=== PATIENT | female | born 1995 | race Two or more races ===

== ENCOUNTER 2024-07-16 12:18 | Inpatient (IN) | payer MEDICAID ==
[~2024-07-16] VITALS: Ht 154.9 cm; Wt 102.2 kg
--- NOTE | 2024-07-16 12:39 | ED.PDOC ---
GI ASSESSMENT HPI Comments 29y F who presents to the ED for chief complaint of abdominal pain. Pt states she has been having epigastric abdominal pain since last night PM. Pt states her pain is sharp, rating the pain 10/10, constant, non-radiating, with no associated exacerbating or relieving factors. Pt has associated nausea, fever, chills with 1 diarrhea episode. Pt otherwise denies any changes to diet or recent sick contacts. Pt denies any other symptoms at this time. Pt noted in distress and states pain has exacerbated in the past 2 hours. Pt otherwise denies any other symptoms at this time. Time Seen by MD: 12:36 Reviewed Notes: Nurses Notes, Medications, Allergies Allergies: Coded Allergies: NO KNOWN ALLERGIES (Unverified , 07/16/24) Information Source: Patient, Relative (Mother) Mode of Arrival: Ambulatory Brought in by: mother Timing: Hours Duration: Since onset Prehospital treatment: None Quality: Sharp Vomitus: None Stool: Gross Severity: Moderate Recent: None Recent Hx of: None Pain Location: Epigastric Modifying Factors: Nothing Associated sign and symptoms: Nausea, Diarrhea, Abdominal Pain, Fever Past Medical History PAST MEDICAL HISTORY: Denies Surgical History: Cholecystectomy [employer] History: Denies all [employer] Hx Family History Family History: Reviewed,noncontributory to illness Social History Smoker: Non-Smoker Alcohol: Denies ETOH Use Drugs: Denies Drug Use Lives In: Home Constitutional: reports: chills, fever; denies: diaphoresis, fatigue, malaise, sweats, weakness, others EENTM: denies: blurred vision, double vision, ear bleeding, ear discharge, ear drainage, ear pain, ear ringing, eye pain, eye redness, hearing loss, mouth pain, mouth swelling, nasal discharge, nose bleeding, nose congestion, nose pain, photophobia, tearing, throat pain, throat swelling, voice changes, others Respiratory: denies: cough, hemoptysis, orthopnea, SOB at rest, shortness of breath, SOB with excertion, stridor, wheezing, others Cardiovascular: denies: chest pain, dizzy spells, diaphoresis, Dyspnea on exertion, edema, irregular heart beat, left arm pain, lightheadedness, palpitations, PND, syncope, others Gastrointestinal: reports: abdominal pain, diarrhea, nausea; denies: abdomen distended, blood streaked bowels, constipated, dysphagia, difficulty swallowing, hematemesis, melena, poor appetite, poor fluid intake, rectal bleeding, rectal pain, vomiting, others Genitourinary: denies: abnormal vagina bleeding, burning, dyspareunia, dysuria, flank pain, frequency, hematuria, incontinence, pain, , vagina discharge, urgency, others Neurological: denies: dizziness, fainting, headache, left sided numbness, left sided weakness, numbness, paresthesia, pre-existing deficit, right sided numbness, right sided weakness, seizure, speech problems, tingling, tremors, weakness, others Musculoskeletal: denies: back pain, gout, joint pain, joint swelling, muscle pain, muscle stiffness, neck pain, others Integumetry: denies: bruises, change in color, change in hair/nails, dryness, laceration, lesions, lumps, rash, wounds, others Allergic/Immunocompromised: denies: Difficulty Healing, Frequent Infections, Hives, Itching, others Hematologic/Lymphatic: denies: anemia, blood clots, easy bleeding, easy bruising, swollen glands, others Endocrine: denies: excessive hunger, excessive sweating, excessive thirst, excessive urination, flushing, intolerance to cold, intolerance to heat, unexplained weight gain, unexplained weight loss, others Psychiatric: denies: anxiety, bipolar disorder, depression, hopeless, panic disorder, schizophrenia, sleepless, suicidal, others All Other Systems: Reviewed and Negative Physical Exam General Appearance: Moderate Distress HEENT: Normal ENT Inspection, Pharynx Normal, TMs Normal Neck: Full Range of Motion, Non-Tender, Normal, Normal Inspection Respiratory: Chest Non-Tender, Lungs Clear, No Accessory Muscle Use, No Respiratory Distress, Normal Breath Sounds Cardiovascular: No Edema, No JVD, No Murmur, No Gallop, Normal Peripheral Pulses, Regular Rate/Rhythm Breast Exam: Deferred Gastrointestinal: Epigastric, No Organomegaly, No Pulsatile Mass, Normal Bowel Sounds, Soft, Tenderness Genitalia: Deferred Pelvic: Deferred Rectal: Deferred Extremities: No calf tenderness, Normal capillary refill, Normal inspection, Normal range of motion, Non-tender, No pedal edema Musculoskeletal : Apperance: Normal Neurologic: Alert, fly finisher II-XII nml as Tested, No Motor Deficits, Normal Affect, Normal Mood, No Sensory Deficits Cerebellar Function: Normal Reflexes: Normal Skin: Dry, Normal Color, Warm Lymphatic: No Adenopathy Was a procedure done? Was a procedure done?: No GI differential Dx Differential Diagnosis: Cholecystitis, Gastritis/PUD, Gastroenteritis, Pancreatitis, UTI, Electrolyte Imbalance, Food Poisoning, Bacterial, Viral, Stress Ulcer Other Differential Diagnosis colitis, X-Ray, Labs, Meds, VS Vital Signs Date Time Temp Pulse Resp B/P (MAP) Pulse Ox O2 Delivery O2 Flow Rate FiO2 07/16/24 12:40 98.0 89 18 130/93 (105) 96 98.0 Lab Test 07/16/24 12:59 Range/Units White Blood Count 6.6 4.4-10.8 10^3/uL Red Blood Count 5.38 H 4.0-5.20 10^6/uL Hemoglobin 15.5 12.2-16.2 g/dL Hematocrit 45.0 36.0-46.0 % Mean Corpuscular Volume 83.6 80.0-100.0 fL Mean Corpuscular Hemoglobin 28.9 28.0-32.0 pg Mean Corpuscular Hemoglobin Concent 34.5 32.0-36.0 g/dL Red Cell Distribution Width 13.0 11.8-14.3 % Platelet Count 257 140-450 10^3/uL Mean Platelet Volume 8.1 6.9-10.8 fL Neutrophils (%) (Auto) 75.1 37.0-80.0 % Lymphocytes (%) (Auto) 11.3 10.0-50.0 % Monocytes (%) (Auto) 12.0 0.0-12.0 % Eosinophils (%) (Auto) 1.2 0.0-7.0 % Basophils (%) (Auto) 0.4 0.0-2.0 % Neutrophils # (Auto) 4.9 1.6-8.6 10 ^3/uL Lymphocytes # (Auto) 0.7 0.4-5.4 10 ^3/uL Monocytes # (Auto) 0.8 0-1.3 10 ^3/uL Eosinophils # (Auto) 0.1 0-0.8 10 ^3/uL Basophils # (Auto) 0 0-0.2 10 ^3/uL Nucleated Red Blood Cells 0.0 % Sodium Level 140 136-145 mmol/L Potassium Level 3.7 3.5-5.1 mmol/L Chloride Level 109 H 98-107 mmol/L Carbon Dioxide Level 21 20-31 mmol/L Anion Gap 10 5-15 Blood Urea Nitrogen 8 L 9-23 mg/dL Creatinine 0.48 L 0.550-1.02 mg/dL Glomerular Filtration Rate Calc 130 >90 mL/min BUN/Creatinine Ratio 16.7 10.0-20.0 Serum Glucose 97 74-106 mg/dL Calcium Level 8.9 8.7-10.4 mg/dL Total Bilirubin 0.9 0.2-1.0 mg/dL Aspartate Amino Transferase (AST) 36 13-40 U/L Alanine Aminotransferase (ALT) 64 H 7-40 U/L Alkaline Phosphatase 55 46-116 U/L Total Protein 7.4 5.7-8.2 g/dL Albumin 4.7 3.2-4.8 g/dL Lipase 88 H 12-53 U/L The patient's CBC is within normal limits The chemistry panel is within normal limits The lipase is elevated at 88 The patient was diagnosis is acute intractable abdominal pain and pancreatitis The patient was being admitted at this time An IV Hep-Lock was established The patient was being given morphine for the pain as well as Protonix and Compazine for the nausea and vomiting The patient was being admitted The CAT scan of the abdomen and pelvis shows: IMPRESSION: 1. No acute abdominal or pelvic findings. Fluid density in the colon suggests a diarrheal illness. Mesenteric lymphadenopathy reactive. Clinical correlation and continued follow-up is recommended. Diffuse hepatic steatosis. Images Reviewed?: Images reviewed and evaluated by me Time of 1ST Reevaluation: 13:05 Reevaluation 1ST: Unchanged Patient Education/Counseling: Diagnosis, Treatment, Prognosis Family Education/Counseling: Diagnosis, Treatment, Prognosis Additional Information -Reviewed patient's previous visit(s): - The following tests were ordered, and results were reviewed by me: cbc, cmp, lipase, ua, ct abd pelvis non-con, - Additional information was gathered from interviewing the following independent Historian: pt and pt mother - I reviewed and agreed with the following test results read by other provider: radiologist - I discussed treatments and results with medical personnel and: pt and pt mother Comprehensive systems review obtained and negative except for what is stated in the HPI. Departure 1 Departure Time of Disposition: 13:44 Impression: Primary Impression: Intractable abdominal pain Additional Impression: Pancreatitis Qualified Codes: K85.90 - Acute pancreatitis without necrosis or infection, unspecified Disposition: 09 ADMITTED INPATIENT Admit to: Med Surg Condition: Fair Critical Care Note Critical Care Time?: No Stability Stability form required: No Heart Score Heart Score: Heart Score Response (Comments) Value History N/A 0 EKG N/A 0 Age N/A 0 Risk Factors N/A 0 Troponin N/A 0 Total 0 I personally scribed for CANDACE MCDERMOTT MD ([email or web address]) on 07/16/24 at 12:39. Electronically submitted by Laura Ha ([email or web address]). I personally scribed for CANDACE MCDERMOTT MD ([email or web address]) on 07/16/24 at 13:04. Electronically submitted by Laura Ha ([email or web address]). CANDACE MCDERMOTT MD July 16, 2024 12:39
[2024-07-16 13:10] LABS: Basophils # (auto) 0 10 ^3/uL (0-0.2); Basophils % (auto) 0.4 % (0.0-2.0); Eosinophils # (auto) 0.1 10 ^3/uL (0-0.8); Eosinophils % (auto) 1.2 % (0.0-7.0); Hemoglobin 15.5 g/dL (12.2-16.2); Lymphocytes # (auto) 0.7 10 ^3/uL (0.4-5.4); Lymphocytes % (auto) 11.3 % (10.0-50.0); Mean Corpuscular Hemoglobin 28.9 pg (28.0-32.0); Mean Corpuscular Hgb Conc. 34.5 g/dL (32.0-36.0); Mean Corpuscular Volume 83.6 fL (80.0-100.0); Monocytes # (auto) 0.8 10 ^3/uL (0-1.3); Neutrophils # (auto) 4.9 10 ^3/uL (1.6-8.6); Neutrophils % (auto) 75.1 % (37.0-80.0); Platelet Count (auto) 257 10^3/uL (140-450); Red Blood Cells 5.38 10^6/uL (4.0-5.20); White Blood Cell 6.6 10^3/uL (4.4-10.8)
--- NOTE | 2024-07-16 13:18 | DVH ---
Exam: CT CT AB PEL WO CON-NO ORAL OR IV History: pain Comparison Study: None Technique: Multidetector spiral CT of the abdomen and pelvis was performed from lung bases to pubic symphysis. Imaging was performed without IV contrast. Axial, coronal and sagittal multiplanar reform ats were obtained from the axial data set by the technologist. Radiation dose : Abdomen/Pelvis: CTDIvol 24 mGy, DLP 1418 mGy*cm. Findings: Evaluation of solid organs is limited due to lack of intravenous contrast use. Lung Bases: No acute or significant lung base finding. Normal heart size. No pleural or pericardial effusion. Liver: Diffuse hepatic steatosis. Gallbladder and biliary Tree: Gallbladder is surgically absent. Spleen: Unremarkable Pancreas: The pancreas is grossly normal in appearance. Adrenal Glands: Unremarkable Kidneys: Kidneys are grossly normal without calculi or hydronephrosis. Bladder: Grossly unremarkable for degree of distention. Bowel: The stomach is grossly normal in appearance. Small bowel and colon are normal in caliber and d istribution. Normal appendix is visualized in the right lower quadrant without findings of appendicit is. Fluid density in the colon suggests a diarrheal illness. Ascites: Absent Lymphadenopathy: Subcentimeter mesenteric lymph nodes noted. Abdominal wall and Mesentery: Unremarkable. Vasculature: The visualized abdominal aorta is normal in size and caliber. Evaluation of abdominal a nd pelvic vessels is limited due to lack of intravenous contrast. Pelvic Organs: Unremarkable Musculoskeletal: No aggressive focal bony lesions, acute fractures or dislocation. IMPRESSION: 1. No acute abdominal or pelvic findings. Fluid density in the colon suggests a diarrheal illness. M esenteric lymphadenopathy reactive. Clinical correlation and continued follow-up is recommended. Di ffuse hepatic steatosis. Radiation optimization: All CT scans at this facility use at least one of these dose optimization doretha hniques: Automated exposure control mA and/or kV adjustment per patient size (includes targeted exams where dose is matched to clinical indication) or iterative reconstruction. HS:Y
[2024-07-16 13:27] LABS: Alanine Aminotransferase 64 U/L (7-40); Albumin 4.7 g/dL (3.2-4.8); Alkaline Phosphatase 55 U/L (46-116); Anion Gap 10 (5-15); Aspartate Aminotransferase 36 U/L (13-40); BUN/Creatinine Ratio 16.7 (10.0-20.0); Bilirubin, Total 0.9 mg/dL (0.2-1.0); Blood Urea Nitrogen 8 mg/dL (9-23); Calcium 8.9 mg/dL (8.7-10.4); Carbon Dioxide 21 mmol/L (20-31); Chloride 109 mmol/L (98-107); Glucose 97 mg/dL (74-106); Lipase 88 U/L (12-53); Potassium 3.7 mmol/L (3.5-5.1); Sodium 140 mmol/L (136-145); Total Protein 7.4 g/dL (5.7-8.2)
[2024-07-16] MEDS ORDERED: MORPHINE SULFATE INJ 2 MG/ml SYRG IV PRN (14:00)
[2024-07-16] MEDS ORDERED: ONDANSETRON HCL 4 MG/2 ML VIAL IV PRN (14:00)
[2024-07-16] MEDS ORDERED: ACETAMINOPHEN 325 MG TAB PO PRN (14:00)
[2024-07-16] MEDS: PANTOPRAZOLE 40 MG/10 ML VIAL INJ IV SCH (14:15)
--- NOTE | 2024-07-16 14:15 | DVHHP2 ---
History of Present Illness Reason for Visit: Abdominal pain History of Present Illness Nadine Barnhart is a 29-year-old female with past medical history of cholecystectomy who presents to the ED with abdominal pain since last night complaints 9/10 constant and reports that it feels like something is" eating" her stomach. Patient reports that she has been trying to vomit with no success. She endorses nausea with chills and diarrhea x3. Patient denies any recent travels, recent trauma or injury, recent sick contacts, recent ingestion of spoiled food, chest pain, shortness of breath, lightheadedness, weakness, dizziness, or urinary symptoms. Past Surgical History: Cholecystectomy Family History: None Smoke: No ALCOHOL: none Drugs: None Lives: with Family Domestic Violence: Neg Review of Systems Constitutional: Yes: Chills Gastrointestinal: Nausea, Abdominal Pain, Diarrhea Allergies: Coded Allergies: NO KNOWN ALLERGIES (Unverified , 07/16/24) Medications Current Medications Medications Dose Ordered Sig/Figueroa Route Start Time Stop Time Status Last Admin Dose Admin Piperacillin Sod/ Tazobactam Sod 100 ml @ 25 mls/hr Q8HR IV 07/16/24 14:00 UNV Acetaminophen/ Hydrocodone Bitart 1 tab Q4HP PRN PO 07/16/24 14:00 UNV Ondansetron HCl 4 mg Q4HP PRN IV 07/16/24 14:00 UNV Acetaminophen 650 mg Q6HP PRN PO 07/16/24 14:00 UNV Morphine Sulfate 2 mg Q4HPRN PRN IV 07/16/24 14:00 UNV Exam Vital Signs Vital Signs Date Time Temp Pulse Resp B/P (MAP) Pulse Ox O2 Delivery O2 Flow Rate FiO2 07/16/24 14:02 83 16 96 Room Air 07/16/24 14:02 97.9 135/85 (102) 97.9 General Appearance: Alert, Oriented X3, Cooperative, No acute distress HEENT: Atraumatic, PERRLA, EOMI, Mucous membr. moist/pink Respiratory: Normal air movement Cardiovascular: Normal S1, Normal S2 Abdominal: Soft Extremities: No clubbing, No cyanosis, No edema, Normal pulses Skin: No significant lesion Neuro: Normal speech, Strength at 5/5 X4 ext, Normal tone, Sensation intact Psych/Mental Status: Mental status NL, Mood NL Labs/Xrays Labs Test 07/16/24 12:59 07/16/24 12:43 Range/Units White Blood Count 6.6 4.4-10.8 10^3/uL Red Blood Count 5.38 H 4.0-5.20 10^6/uL Hemoglobin 15.5 12.2-16.2 g/dL Hematocrit 45.0 36.0-46.0 % Mean Corpuscular Volume 83.6 80.0-100.0 fL Mean Corpuscular Hemoglobin 28.9 28.0-32.0 pg Mean Corpuscular Hemoglobin Concent 34.5 32.0-36.0 g/dL Red Cell Distribution Width 13.0 11.8-14.3 % Platelet Count 257 140-450 10^3/uL Mean Platelet Volume 8.1 6.9-10.8 fL Neutrophils (%) (Auto) 75.1 37.0-80.0 % Lymphocytes (%) (Auto) 11.3 10.0-50.0 % Monocytes (%) (Auto) 12.0 0.0-12.0 % Eosinophils (%) (Auto) 1.2 0.0-7.0 % Basophils (%) (Auto) 0.4 0.0-2.0 % Neutrophils # (Auto) 4.9 1.6-8.6 10 ^3/uL Lymphocytes # (Auto) 0.7 0.4-5.4 10 ^3/uL Monocytes # (Auto) 0.8 0-1.3 10 ^3/uL Eosinophils # (Auto) 0.1 0-0.8 10 ^3/uL Basophils # (Auto) 0 0-0.2 10 ^3/uL Nucleated Red Blood Cells 0.0 % Sodium Level 140 136-145 mmol/L Potassium Level 3.7 3.5-5.1 mmol/L Chloride Level 109 H 98-107 mmol/L Carbon Dioxide Level 21 20-31 mmol/L Anion Gap 10 5-15 Blood Urea Nitrogen 8 L 9-23 mg/dL Creatinine 0.48 L 0.550-1.02 mg/dL Glomerular Filtration Rate Calc 130 >90 mL/min BUN/Creatinine Ratio 16.7 10.0-20.0 Serum Glucose 97 74-106 mg/dL Calcium Level 8.9 8.7-10.4 mg/dL Total Bilirubin 0.9 0.2-1.0 mg/dL Aspartate Amino Transferase (AST) 36 13-40 U/L Alanine Aminotransferase (ALT) 64 H 7-40 U/L Alkaline Phosphatase 55 46-116 U/L Total Protein 7.4 5.7-8.2 g/dL Albumin 4.7 3.2-4.8 g/dL Lipase 88 H 12-53 U/L Exam: CT CT AB PEL WO CON-NO ORAL OR IV History: pain Comparison Study: None Technique: Multidetector spiral CT of the abdomen and pelvis was performed from lung bases to pubic symphysis. Imaging was performed without IV contrast. Axial, coronal and sagittal multiplanar reformats were obtained from the axial data set by the technologist. Radiation dose : Abdomen/Pelvis: CTDIvol 24 mGy, DLP 1418 mGy*cm. Findings: Evaluation of solid organs is limited due to lack of intravenous contrast use. Lung Bases: No acute or significant lung base finding. Normal heart size. No pleural or pericardial effusion. Liver: Diffuse hepatic steatosis. Gallbladder and biliary Tree: Gallbladder is surgically absent. Spleen: Unremarkable Pancreas: The pancreas is grossly normal in appearance. Adrenal Glands: Unremarkable Kidneys: Kidneys are grossly normal without calculi or hydronephrosis. Bladder: Grossly unremarkable for degree of distention. Bowel: The stomach is grossly normal in appearance. Small bowel and colon are normal in caliber and distribution. Normal appendix is visualized in the right lower quadrant without findings of appendicitis. Fluid density in the colon suggests a diarrheal illness. Ascites: Absent Lymphadenopathy: Subcentimeter mesenteric lymph nodes noted. Abdominal wall and Mesentery: Unremarkable. Vasculature: The visualized abdominal aorta is normal in size and caliber. Evaluation of abdominal and pelvic vessels is limited due to lack of intravenous contrast. Pelvic Organs: Unremarkable Musculoskeletal: No aggressive focal bony lesions, acute fractures or dislocation. IMPRESSION: 1. No acute abdominal or pelvic findings. Fluid density in the colon suggests a diarrheal illness. Mesenteric lymphadenopathy reactive. Clinical correlation and continued follow-up is recommended. Diffuse hepatic steatosis. Assessment/Plan Assessment/Plan Assessment Intractable abdominal pain with diarrhea nausea and chills probable gastritis versus colitis per versus peptic ulcer disease Rule out C diff Morbid obesity Hyperlipasemia History of cholecystectomy Plan Admit to med surge UA UDS PPIs Antiemetics Pain management NS [address] abdomen and pelvis noted ESR CRP Lactic level Amylase IV antibiotics-Zosyn Stool bacterial culture Diet Per patient she takes no home medications DVT prophylaxis-not indicated patient ambulating PUD prophylaxis-PPIs Discussed plan of care with patient and nurse Counseled patient on lifestyle modifications, diet, and exercise Plan discussed with: Patient My Orders Orders - ANA M LEUNG Procedure Category Date Status Time Piperacillin-Tazob PHA 07/16/24 Logged 3.375gm (Zosyn 3.375g 14:00 Erythrocyte LAB 07/16/24 Logged Sedimentation Rate 13:48 C-Reactive Protein LAB 07/16/24 Logged 13:48 Lactic Acid W/ Reflex LAB 07/16/24 Logged Order 13:48 Stool Bacterial MOLINA 07/16/24 Logged Culture 13:48 Admit ADMIT 07/16/24 Transmitted 13:48 Allergies PIOTR 07/16/24 In Process 13:48 Code Status CODE 07/16/24 Transmitted 13:48 Hydrocodone-Acet PHA 07/16/24 Logged 5/325mg Tab (Prompton 14:00 Ondansetron Hcl PHA 07/16/24 Logged (Zofran) 14:00 Complete Blood Count LAB 07/17/24 Verified 04:00 Comprehensive LAB 07/17/24 Verified Metabolic Panel 04:00 Cardiac DIET 07/16/24 Transmitted Diet-2gna,Lofat,Lochol Dinner Acetaminophen Tablet PHA 07/16/24 Logged (Tylenol Tablet) 14:00 Morphine Sulfate PHA 07/16/24 Logged Injection 14:00 Sequential PIOTR 07/16/24 In Process Compression Device Date of Service: July 16, 2024 Billing Provider: ANA M LEUNG Common Visit Codes: [id number] INP/OBS CARE (HIGH) ANA M LEUNG July 16, 2024 14:15
[2024-07-16 14:21] LABS: Urine Bacteria FEW /hpf (None Seen); Urine Blood 3+ /uL (Negative); Urine Clarity Turbid (Clear); Urine Color Light-Yellow (Yellow); Urine Mucus FEW (None Seen); Urine Protein, UAD Negative (Negative); Urine Specific Gravity 1.014 (1.001-1.035); Urine Squamous Epithelial Cell FEW /hpf (<5); Urine Urobilinogen Normal (Negative); Urine WBC 5 /HPF (0-5); Urine pH 6.5 (5.0-9.0)
[2024-07-16] MEDS: SODIUM CHLORIDE 0.9% 1,000 ML IVB ONE (14:39)
[2024-07-16] MEDS: PROCHLORPERAZINE EDISYLATE 5 MG/ML 2ML VIAL IV ONE (14:46)
[2024-07-16] MEDS: MORPHINE SULFATE 4 MG/ML SYR/VIAL IV ONE (14:47)
[2024-07-16] MEDS: PIPERACILLIN-TAZOB 3.375GM 100 ML IV ONE (14:47)
[2024-07-16] MEDS: PANTOPRAZOLE 40 MG/10 ML VIAL INJ IV ONE (14:47)
[2024-07-16 14:53] LABS: Amphetamine Screen, Urine Neg (NEGATIVE); Barbiturate Scree,Urine Neg (NEGATIVE); Benzodiazephine Screen, Urine Neg (NEGATIVE); Cannabinoid Screen, Urine Neg (NEGATIVE); Cocaine Screen, Urine Neg (NEGATIVE); Opiate Scree,Urine Neg (NEGATIVE); Phencyclidine Screen, Urine Neg (NEGATIVE)
[2024-07-16 15:00] VITALS: PULSE 80; RESP 16; O2SAT 97
[2024-07-16 15:05] LABS: Erythrocyte Sedimentation Rate 10 mm/hr (0-20)
[2024-07-16 16:10] VITALS: BP 117/64; PULSE 64; RESP 18; TEMP 97.4; O2SAT 95
[2024-07-16 17:21] VITALS: BP 117/64; PULSE 62; TEMP 97.4; O2SAT 95
[2024-07-16 20:00] VITALS: PULSE 75; RESP 18
[2024-07-16 21:00] VITALS: BP 124/68; PULSE 75; RESP 18; TEMP 98; O2SAT 97
[2024-07-16] MEDS: PIPERACILLIN-TAZOB 3.375GM 100 ML IV SCH (21:52)
[2024-07-17 01:00] VITALS: BP 118/72; PULSE 89; RESP 18; TEMP 97.6; O2SAT 97
[2024-07-17 05:00] VITALS: BP 105/74; PULSE 72; RESP 18; TEMP 97.9; O2SAT 97
[2024-07-17 07:01] LABS: Alanine Aminotransferase 86 U/L (7-40); Albumin 4.1 g/dL (3.2-4.8); Alkaline Phosphatase 53 U/L (46-116); Anion Gap 12 (5-15); Aspartate Aminotransferase 56 U/L (13-40); BUN/Creatinine Ratio 16.3 (10.0-20.0); Bilirubin, Total 0.5 mg/dL (0.2-1.0); Blood Urea Nitrogen 8 mg/dL (9-23); Carbon Dioxide 17 mmol/L (20-31); Chloride 112 mmol/L (98-107); Glucose 90 mg/dL (74-106); Potassium 4.3 mmol/L (3.5-5.1); Sodium 141 mmol/L (136-145); Total Protein 6.2 g/dL (5.7-8.2)
[2024-07-17 07:37] LABS: Basophils # (auto) 0 10 ^3/uL (0-0.2); Basophils % (auto) 0.5 % (0.0-2.0); Eosinophils # (auto) 0.1 10 ^3/uL (0-0.8); Eosinophils % (auto) 2.2 % (0.0-7.0); Hematocrit 42.9 % (36.0-46.0); Hemoglobin 14.7 g/dL (12.2-16.2); Lymphocytes # (auto) 1.3 10 ^3/uL (0.4-5.4); Lymphocytes % (auto) 34.6 % (10.0-50.0); Mean Corpuscular Hemoglobin 28.9 pg (28.0-32.0); Mean Corpuscular Hgb Conc. 34.2 g/dL (32.0-36.0); Mean Corpuscular Volume 84.4 fL (80.0-100.0); Monocytes # (auto) 0.4 10 ^3/uL (0-1.3); Monocytes % (auto) 11.3 % (0.0-12.0); Neutrophils # (auto) 1.9 10 ^3/uL (1.6-8.6); Neutrophils % (auto) 51.4 % (37.0-80.0); Nucleated Red Blood Cells % 0.2 %; Platelet Count (auto) 242 10^3/uL (140-450); Red Blood Cells 5.08 10^6/uL (4.0-5.20); Red Cell Distribution Width 12.9 % (11.8-14.3); White Blood Cell 3.8 10^3/uL (4.4-10.8)
[2024-07-17 09:21] VITALS: BP 103/58; PULSE 57; RESP 16; TEMP 98; O2SAT 98
[2024-07-17] MEDS: HYDROcodone-ACET 5/325MG TAB PO PRN (09:22)
--- NOTE | 2024-07-17 12:31 | DVHPN2 ---
Reviewed: Care Plan, H&P, Labs, Medications, Previous Orders, Radiology Changes from previous H/P or p: No Changes Gastrointestinal: Nausea, Abdominal Pain, Diarrhea Objective Vitals Vital Signs Date Time Temp Pulse Resp B/P (MAP) Pulse Ox O2 Delivery O2 Flow Rate FiO2 07/17/24 09:21 98.0 57 16 103/58 (73) 98 98.0 07/17/24 08:00 Room Air* 0 21 Intake/Output Intake and Output 07/17/24 07:00 Intake Total 700 ml Balance 700 ml Intake Oral 700 ml # Voids 3 Medications Current Medications Medications Dose Ordered Sig/Figueroa Route Start Time Stop Time Status Last Admin Dose Admin Piperacillin Sod/ Tazobactam Sod 100 ml @ 25 mls/hr Q8HR IV 07/16/24 22:00 07/17/24 06:07 25 MLS/HR Acetaminophen/ Hydrocodone Bitart 1 tab Q4HP PRN PO 07/16/24 14:00 07/17/24 09:22 1 TAB Ondansetron HCl 4 mg Q4HP PRN IV 07/16/24 14:00 Acetaminophen 650 mg Q6HP PRN PO 07/16/24 14:00 Morphine Sulfate 2 mg Q4HPRN PRN IV 07/16/24 14:00 Pantoprazole Sodium 40 mg DAILY IV 07/16/24 14:15 07/17/24 09:22 40 MG Laboratory Results Laboratory Tests 07/17/24 05:07 07/17/24 07:16 Chemistry Test 07/16/24 12:59 07/17/24 05:07 Albumin 4.7 g/dL (3.2-4.8) 4.1 g/dL (3.2-4.8) Calcium Level 8.9 mg/dL (8.7-10.4) 9.0 mg/dL (8.7-10.4) Total Protein 7.4 g/dL (5.7-8.2) 6.2 g/dL (5.7-8.2) Lipid panel Test 07/16/24 12:59 Lipase 88 U/L (12-53) H LFT Test 07/16/24 12:59 07/17/24 05:07 Alanine Aminotransferase (ALT) 64 U/L (7-40) H 86 U/L (7-40) H Alkaline Phosphatase 55 U/L (46-116) 53 U/L (46-116) Aspartate Amino Transferase (AST) 36 U/L (13-40) 56 U/L (13-40) H Total Bilirubin 0.9 mg/dL (0.2-1.0) 0.5 mg/dL (0.2-1.0) Urinalysis Test 07/16/24 12:43 Urine Color Light-yellow (Yellow) Urine Clarity Turbid (Clear) H Urine pH 6.5 (5.0-9.0) Urine Specific [place] 1.014 (1.001-1.035) Urine Protein Negative (Negative) Urine Ketones 1+ (Negative) H Urine Blood 3+ /uL (Negative) H Urine Nitrite Negative (Negative) Urine Bilirubin Negative (Negative) Urine Urobilinogen Normal mg/dL (Negative) Urine Leukocyte Esterase 2+ /uL (Negative) Urine RBC 21 /hpf (0 - 4) Urine Microscopic WBC 5 /HPF (0-5) Urine Squamous Epithelial Cells Few /hpf (<5) Urine Bacteria Few /hpf (None Seen) H Urine Mucus Few (None Seen) Urine Glucose Normal mg/dL (Normal) Labs and/or images reviewed: Labs reviewed by me, Image(s) reviewed by me Assessment/Plan Assessment/Plan Nausea and vomiting: Zofran pantoprazole Acute enterocolitis Zosyn Acute Dehydration: IV fluids CT abdomen pelvis without contrast ordered History of cholecystectomy Plan discussed with: Patient Date of Service: July 17, 2024 Billing Provider: AMBER SERRANO MD Common Visit Codes: [id number] INP/OBS CARE(HIGH) AMBER SERRANO MD July 17, 2024 12:31
[2024-07-17 13:00] VITALS: BP 121/80; PULSE 76; RESP 16; TEMP 97.9; O2SAT 97
[2024-07-17 16:41] VITALS: BP 132/75; PULSE 71; RESP 16; TEMP 97.5; O2SAT 97
[2024-07-17] MEDS: SODIUM CHLORIDE 0.9% 1,000 ML IV SCH (18:25)
[2024-07-18 01:00] VITALS: BP 129/75; PULSE 64; RESP 18; TEMP 97.7; O2SAT 95
[2024-07-18 05:00] VITALS: BP_SYST 128; BP_SYST 134; BP_DIAS 55; BP_DIAS 72; PULSE 77; PULSE 78; RESP 18; RESP 19; TEMP 97.5; TEMP 98.1; O2SAT 18; O2SAT 95
[2024-07-18 08:00] VITALS: PULSE 74; RESP 20; O2SAT 95
[2024-07-18 09:00] VITALS: BP_SYST 127; BP_SYST 137; BP_DIAS 52; BP_DIAS 70; PULSE 74; PULSE 87; RESP 18; RESP 20; TEMP 98; TEMP 98.1; O2SAT 95; O2SAT 98
[2024-07-18 09:01] LABS: Lipase 37 U/L (12-53)
[2024-07-18 09:03] LABS: Amylase 37 U/L (30-118)
[2024-07-18] MEDS ORDERED: LEVO500T91 PO (09:04)
[2024-07-18] MEDS ORDERED: METR-344 PO (09:04)
[2024-07-18] MEDS ORDERED: ZOFR4T PO (09:04)
--- NOTE | 2024-07-18 09:05 | DVHPN2 ---
Reviewed: Care Plan, H&P, Labs, Medications, Previous Orders, Radiology Changes from previous H/P or p: No Changes Gastrointestinal: Nausea, Abdominal Pain, Diarrhea Objective Vitals Vital Signs Date Time Temp Pulse Resp B/P (MAP) Pulse Ox O2 Delivery O2 Flow Rate FiO2 07/18/24 05:00 97.5 77 19 134/72 (92) 95 97.5 07/17/24 20:00 Room Air* 0 21 Intake/Output Intake and Output 07/18/24 07:00 Intake Total 932 ml Balance 932 ml Intake Oral 725 ml IV Total 200 ml Tube Feeding 7 ml # Voids 3 Medications Current Medications Medications Dose Ordered Sig/Figueroa Route Start Time Stop Time Status Last Admin Dose Admin Piperacillin Sod/ Tazobactam Sod 100 ml @ 25 mls/hr Q8HR IV 07/16/24 22:00 07/18/24 05:55 25 MLS/HR Acetaminophen/ Hydrocodone Bitart 1 tab Q4HP PRN PO 07/16/24 14:00 07/17/24 22:30 1 TAB Ondansetron HCl 4 mg Q4HP PRN IV 07/16/24 14:00 Acetaminophen 650 mg Q6HP PRN PO 07/16/24 14:00 Morphine Sulfate 2 mg Q4HPRN PRN IV 07/16/24 14:00 Pantoprazole Sodium 40 mg DAILY IV 07/16/24 14:15 07/17/24 09:22 40 MG Sodium Chloride 1,000 ml @ 150 mls/hr Q6H40M IV 07/17/24 16:30 07/18/24 05:50 150 MLS/HR Laboratory Results Laboratory Tests 07/17/24 05:07 07/17/24 07:16 Lipid panel Test 07/18/24 06:46 Lipase Pending Urinalysis Test 07/16/24 12:43 Urine Color Light-yellow (Yellow) Urine Clarity Turbid (Clear) H Urine pH 6.5 (5.0-9.0) Urine Specific [place] 1.014 (1.001-1.035) Urine Protein Negative (Negative) Urine Ketones 1+ (Negative) H Urine Blood 3+ /uL (Negative) H Urine Nitrite Negative (Negative) Urine Bilirubin Negative (Negative) Urine Urobilinogen Normal mg/dL (Negative) Urine Leukocyte Esterase 2+ /uL (Negative) Urine RBC 21 /hpf (0 - 4) Urine Microscopic WBC 5 /HPF (0-5) Urine Squamous Epithelial Cells Few /hpf (<5) Urine Bacteria Few /hpf (None Seen) H Urine Mucus Few (None Seen) Urine Glucose Normal mg/dL (Normal) Labs and/or images reviewed: Labs reviewed by me, Image(s) reviewed by me Assessment/Plan Assessment/Plan Nausea and vomiting: Zofran pantoprazole Acute enterocolitis Zosyn Acute Dehydration: IV fluids CT abdomen pelvis without contrast negative for any acute pathology History of cholecystectomy Patient feels better and wants to go home Plan discussed with: Patient My Orders Orders - AMBER SERRANO MD Procedure Category Date Status Time Lipase LAB 07/18/24 In Process 05:00 Amylase LAB 07/18/24 In Process 05:00 Sodium Chloride 0.9% PHA 07/17/24 In Process 16:30 Date of Service: July 18, 2024 Billing Provider: AMBER SERRANO MD Common Visit Codes: [id number] INP/OBS CARE(HIGH) AMBER SERRANO MD July 18, 2024 09:05
--- NOTE | 2024-07-18 09:08 | DVHDS2 ---
Discharge Summary Date of Admission July 16, 2024 at 13:48 Date of Discharge: July 18, 2024 Admitting Diagnosis Diarrhea nausea vomiting Wounds: None Labs/Diagnostic Data: Laboratory Results Test 07/18/24 06:46 07/17/24 07:16 07/17/24 05:07 07/16/24 14:32 Lipase 37 U/L (12-53) White Blood Count 3.8 10^3/uL (4.4-10.8) Red Blood Count 5.08 10^6/uL (4.0-5.20) Hemoglobin 14.7 g/dL (12.2-16.2) Hematocrit 42.9 % (36.0-46.0) Mean Corpuscular Volume 84.4 fL (80.0-100.0) Mean Corpuscular Hemoglobin 28.9 pg (28.0-32.0) Mean Corpuscular Hemoglobin Concent 34.2 g/dL (32.0-36.0) Red Cell Distribution Width 12.9 % (11.8-14.3) Platelet Count 242 10^3/uL (140-450) Mean Platelet Volume 8.3 fL (6.9-10.8) Neutrophils (%) (Auto) 51.4 % (37.0-80.0) Lymphocytes (%) (Auto) 34.6 % (10.0-50.0) Monocytes (%) (Auto) 11.3 % (0.0-12.0) Eosinophils (%) (Auto) 2.2 % (0.0-7.0) Basophils (%) (Auto) 0.5 % (0.0-2.0) Neutrophils # (Auto) 1.9 10 ^3/uL (1.6-8.6) Lymphocytes # (Auto) 1.3 10 ^3/uL (0.4-5.4) Monocytes # (Auto) 0.4 10 ^3/uL (0-1.3) Eosinophils # (Auto) 0.1 10 ^3/uL (0-0.8) Basophils # (Auto) 0 10 ^3/uL (0-0.2) Nucleated Red Blood Cells 0.2 % Sodium Level 141 mmol/L (136-145) Potassium Level 4.3 mmol/L (3.5-5.1) Chloride Level 112 mmol/L (98-107) Carbon Dioxide Level 17 mmol/L (20-31) Anion Gap 12 (5-15) Blood Urea Nitrogen 8 mg/dL (9-23) Creatinine 0.49 mg/dL (0.550-1.02) Glomerular Filtration Rate Calc 129 mL/min (>90) BUN/Creatinine Ratio 16.3 (10.0-20.0) Serum Glucose 90 mg/dL (74-106) Calcium Level 9.0 mg/dL (8.7-10.4) Total Bilirubin 0.5 mg/dL (0.2-1.0) Aspartate Amino Transferase (AST) 56 U/L (13-40) Alanine Aminotransferase (ALT) 86 U/L (7-40) Alkaline Phosphatase 53 U/L (46-116) Total Protein 6.2 g/dL (5.7-8.2) Albumin 4.1 g/dL (3.2-4.8) Lactic Acid Level 0.9 mmol/L (0.4-2.0) Test 07/16/24 12:59 07/16/24 12:43 Erythrocyte Sedimentation Rate 10 mm/hr (0-20) C-Reactive Protein High Sensitivity 1.32 mg/dL (<1.0) Urine Color Light-yellow (Yellow) Urine Clarity Turbid (Clear) Urine pH 6.5 (5.0-9.0) Urine Specific [place] 1.014 (1.001-1.035) Urine Protein Negative (Negative) Urine Ketones 1+ (Negative) Urine Blood 3+ /uL (Negative) Urine Nitrite Negative (Negative) Urine Bilirubin Negative (Negative) Urine Urobilinogen Normal mg/dL (Negative) Urine Leukocyte Esterase 2+ /uL (Negative) Urine RBC 21 /hpf (0 - 4) Urine Microscopic WBC 5 /HPF (0-5) Urine Squamous Epithelial Cells Few /hpf (<5) Urine Bacteria Few /hpf (None Seen) Urine Mucus Few (None Seen) Urine Glucose Normal mg/dL (Normal) Urine Opiates Screen Neg (NEGATIVE) Urine Fentanyl Screen Neg (NEGATIVE) Urine Barbiturates Screen Neg (NEGATIVE) Urine Phencyclidine Screen Neg (NEGATIVE) Urine Amphetamines Screen Neg (NEGATIVE) Urine Benzodiazepines Screen Neg (NEGATIVE) Urine Cocaine Screen Neg (NEGATIVE) Urine Cannabinoids Screen Neg (NEGATIVE) Other Laboratory Tests 07/17/24 07:16 07/17/24 05:07 Brief Hx & Hospital Course: 29-year-old female with a history of cholecystectomy came in complaining of nausea vomiting and diarrhea. CT abdomen pelvis without contrast negative except for colitis treated with the Zosyn and pantoprazole dehydration resolved with IV fluids patient feels better and wants to go home. Discharged home on Levaquin Flagyl and Zofran she will follow up with the primary Dr. Consults/Reason for consult None Operations or Procedures CT abdomen pelvis without contrast Condition at Discharge: Fair Final Diagnosis/Problems List Nausea and vomiting: Zofran pantoprazole Acute enterocolitis Zosyn Acute Dehydration: IV fluids CT abdomen pelvis without contrast negative for any acute pathology History of cholecystectomy Discharge Disposition: Home Discharge Instruct/Medications Diet: Regular Activity: Light activity Follow Up/Referral: Follow up with the primary Dr Use Medications as prescribed Medications: Levaquin Flagyl Zofran Transmitted to pharmacy 35 (Time taken for discharge summary 35 minutes) Discharge Statement: "Patient was advised to return to the ER or call 911 if any headaches, dizziness, shortness of breath, chest pain, abdominal pain, bleeding, fevers, or worsening of medical condition. Patient was counseled about treatment plan, medications, possible side effects, patientverbalized understanding. All questions were answered to the best of my ability. This discharge took greater then 30 minutes in planning, reviewing documentation, counseling the patient, and discussing with other team members." ASSESSMENT ASSESSMENT Hospital Course Improved Assessment Nausea and vomiting: Zofran pantoprazole Acute enterocolitis Zosyn Acute Dehydration: IV fluids CT abdomen pelvis without contrast negative for any acute pathology History of cholecystectomy Date of Service: July 18, 2024 Billing Provider: AMBER SERRANO MD Common Visit Codes: 99024-UHJ/OBS DISCH DAY >30min AMBER SERRANO MD July 18, 2024 09:08
[2024-07-18 10:12] VITALS: BP 127/70; PULSE 74; RESP 20; TEMP 98; O2SAT 95
== END 2024-07-18 11:10 | disposition home or self-care (01) | DRG 248 ==
LOC: ER 12:18 → OVERFLOW 13:48 → WEST WING 16:03
PROVIDERS: ADMIT Family Medicine; ATTEND Family Medicine
DX: A04.9 Bacterial intestinal infection, unspecified (principal); K76.0 Fatty (change of) liver, not elsewhere classified; E66.01 Morbid (severe) obesity due to excess calories; Z68.41 Body mass index [BMI] 40.0-44.9, adult; E86.0 Dehydration; Z90.49 Acquired absence of other specified parts of digestive tract
CPT/HCPCS: 36415; 74176; 80053; 80307; 81001; 82150; 83605; 83690; 85025; 85652; 86141; G0378; J2470; J2543